=== PATIENT | female | born 2000 | race Caucasian/White ===

== ENCOUNTER 2019-01-01 20:00 | Emergency (ER) | payer SELFPAY ==
[~2019-01-01] VITALS: Ht 162.6 cm; Wt 54.4 kg
[2019-01-01] MEDS ORDERED: IV NORMAL SALINE 1000ML BAG 1,000 ML IV ONE (20:15)
[2019-01-01] MEDS ORDERED: ONDANSETRON PF 4 MG/2 ML VIAL. IVP ONE (20:15)
[2019-01-01] MEDS ORDERED: IPRATRPIUM/ALBUTEROL 0.5/2.5MG 3 ML NEBU. NEB ONE (20:30)
[2019-01-01] MEDS ORDERED: methylPREDNISolone SOD SUCC PF 125 MG/2 ML VIAL. IV ONE (20:30)
[2019-01-01 20:33] LABS: BASO # 0.1 x10^3/uL (0.0-0.2); BASO % 1 % (0-3); EOS # 0.1 x10^3/uL (0.0-0.7); EOS % 1 % (0-3); HEMATOCRIT 45.7 % (36.0-47.0); HEMOGLOBIN 15.3 g/dL (12.0-15.5); LYMPH # 1.3 x10^3/uL (1.0-4.8); LYMPH % 12 % (24-48); MEAN CORPUSCULAR HEMOGLOBIN 28 pg (25-35); MEAN CORPUSCULAR HGB CONC 34 g/dL (31-37); MEAN CORPUSCULAR VOLUME 84 fL (79-100); MONO # 0.5 x10^3/uL (0.0-1.1); MONO % 5 % (0-9); NEUT # 9.3 x10^3/uL (1.8-7.7); NEUT % 82 % (31-73); PLATELET COUNT 229 x10^3/uL (140-400); RED BLOOD COUNT 5.47 x10^6/uL (3.50-5.40); RED CELL DISTRIBUTION WIDTH 14.5 % (11.5-14.5); WHITE BLOOD COUNT 11.4 x10^3/uL (4.0-11.0)
--- NOTE | 2019-01-01 20:34 | PHYS DOC ---
Adult General Chief Complaint Chief Complaint: MULTIPLE COMPLAINTS HPI HPI Patient is a 18 year old female with history of asthma presents this shortness breath, cough and wheezing for the past 3 days, sore throat, nausea, vomiting and diarrhea past 5 days. No abdominal pain. Patient denies fever but reports sweats. Reports frequent albuterol inhaler use every 2 hours. Recent respiratory illness exposure. Patient's son was evaluated in this emergency department approximately one week ago for upper respiratory tract infection. [] Review of Systems Review of Systems Review symptoms as per history of present illness. All other review symptoms are negative. All other systems were reviewed and found to be within normal limits, except as documented in this note. Current Medications Current Medications Current Medications Medications (Trade) Dose Ordered Sig/Dylon Start Time Stop Time Status Last Admin Dose Admin Albuterol Sulfate (Ventolin Neb Soln) 10 mg 1X ONCE 01/01/19 21:30 01/01/19 21:31 DC 01/01/19 21:33 10 MG Albuterol/ Ipratropium (Duoneb) 3 ml 1X ONCE 01/01/19 20:30 01/01/19 20:45 DC 01/01/19 20:31 3 ML Ipratropium [place] (Atrovent) 0.5 mg 1X ONCE 01/01/19 21:30 01/01/19 21:31 DC 01/01/19 21:33 0.5 MG Methylprednisolone Sodium Succinate (SOLU-Medrol 125MG VIAL) 125 mg 1X ONCE 01/01/19 20:30 01/01/19 20:45 DC 01/01/19 20:46 125 MG Ondansetron HCl (Zofran) 4 mg 1X ONCE 01/01/19 20:15 01/01/19 20:45 DC 01/01/19 20:46 4 MG Sodium Chloride 1,000 ml @ 1,000 mls/hr 1X ONCE 01/01/19 20:15 01/01/19 21:14 DC 01/01/19 20:46 1,000 MLS/HR Allergies Allergies Allergies Coded Allergies Type Severity Reaction Last Updated Verified lamotrigine Allergy Intermediate Rash 01/01/19 Yes Physical Exam Physical Exam Constitutional: Well developed, well nourished, no acute distress, non-toxic appearance. [] HENT: Normocephalic, bilateral external ears normal, oropharynx moist, no oral exudates, nose, congestion. [] Eyes: PERRLA, EOMI, conjunctiva normal, no discharge. [] Neck: Normal range of motion, no tenderness. [] Cardiovascular:Heart rate regular rhythm, no murmur [] Lungs & Thorax: Respirations nonlabored, sounds mildly diminished, coarse wheezes respiratory and expiratory bilaterally. [] Abdomen: Bowel sounds normal, soft, no tenderness, no masses, no pulsatile masses. [] Skin: Warm, dry, no erythema, no rash. [] Back: No tenderness, no CVA tenderness. [] Extremities: No tenderness, no edema. [] Neurologic: Alert and oriented X 3, normal motor function, normal sensory function, no focal deficits noted. [] Psychologic: Affect normal, judgement normal, mood normal. [] Current Patient Data Vital Signs Vital Signs Date Time Temp Pulse Resp B/P (MAP) Pulse Ox O2 Delivery O2 Flow Rate FiO2 01/01/19 21:38 97 Room Air 01/01/19 20:10 98.8 117 18 132/71 (91) 94.0 98.8 Lab Values Laboratory Tests Test 01/01/19 20:10 01/01/19 20:21 01/01/19 20:25 Urine Collection Type Unknown Urine Color [place] Urine Clarity Clear Urine pH 6.0 Urine Specific [place] >=1.030 Urine Protein 30 mg/dL (NEG-TRACE) Urine Glucose (UA) Negative mg/dL (NEG) Urine Ketones (Stick) Trace mg/dL (NEG) Urine Blood Negative (NEG) Urine Nitrite Negative (NEG) Urine Bilirubin Small (NEG) Urine Urobilinogen Dipstick 1.0 mg/dL (0.2 mg/dL) Urine Leukocyte Esterase Negative (NEG) Urine RBC 1-2 /HPF (0-2) Urine WBC 1-4 /HPF (0-4) Urine Squamous Epithelial Cells Few /LPF Urine Bacteria Moderate /HPF (0-FEW) Urine Mucus Marked /LPF POC Urine HCG, Qualitative Hcg negative (Negative) White Blood Count 11.4 x10^3/uL (4.0-11.0) H Red Blood Count 5.47 x10^6/uL (3.50-5.40) H Hemoglobin 15.3 g/dL (12.0-15.5) Hematocrit 45.7 % (36.0-47.0) Mean Corpuscular Volume 84 fL (79-100) Mean Corpuscular Hemoglobin 28 pg (25-35) Mean Corpuscular Hemoglobin Concent 34 g/dL (31-37) Red Cell Distribution Width 14.5 % (11.5-14.5) Platelet Count 229 x10^3/uL (140-400) Neutrophils (%) (Auto) 82 % (31-73) H Lymphocytes (%) (Auto) 12 % (24-48) L Monocytes (%) (Auto) 5 % (0-9) Eosinophils (%) (Auto) 1 % (0-3) Basophils (%) (Auto) 1 % (0-3) Neutrophils # (Auto) 9.3 x10^3/uL (1.8-7.7) H Lymphocytes # (Auto) 1.3 x10^3/uL (1.0-4.8) Monocytes # (Auto) 0.5 x10^3/uL (0.0-1.1) Eosinophils # (Auto) 0.1 x10^3/uL (0.0-0.7) Basophils # (Auto) 0.1 x10^3/uL (0.0-0.2) Sodium Level 142 mmol/L (136-145) Potassium Level 3.5 mmol/L (3.5-5.1) Chloride Level 104 mmol/L (98-107) Carbon Dioxide Level 25 mmol/L (21-32) Anion Gap 13 (6-14) Blood Urea Nitrogen 9 mg/dL (7-20) Creatinine 0.8 mg/dL (0.6-1.0) Estimated GFR (Cockcroft-Gault) 91.4 BUN/Creatinine Ratio 11 (6-20) Glucose Level 99 mg/dL (70-99) Calcium Level 9.6 mg/dL (8.5-10.1) Total Bilirubin 1.9 mg/dL (0.2-1.0) H Aspartate Amino Transferase (AST) 15 U/L (15-37) Alanine Aminotransferase (ALT) 11 U/L (14-59) L Alkaline Phosphatase 96 U/L (46-116) Total Protein 8.7 g/dL (6.4-8.2) H Albumin 4.3 g/dL (3.4-5.0) Albumin/Globulin Ratio 1.0 (1.0-1.7) Influenza Type A Antigen Negative (NEGATIVE) Influenza Type B Antigen Negative (NEGATIVE) Laboratory Tests 01/01/19 20:25 Laboratory Tests 01/01/19 20:25 EKG EKG [] Radiology/Procedures Radiology/Procedures [Chest x-ray: No acute cardiopulmonary disease per radiology report.] Course & Med Decision Making Course & Med Decision Making Pertinent Labs and Imaging studies reviewed. (See chart for details) [Patient with a respiratory tract infection with asthma exacerbation. Steroids, repeat nebs given with symptomatic improvement. Recommend continued supportive care with PCP follow-up. Return precautions reviewed here patient verbalizes understanding agreement discharge instructions prior to departure] Dragon Disclaimer Dragon Disclaimer This electronic medical record was generated, in whole or in part, using a voice recognition dictation system. Departure Departure Impression: Primary Impression: Respiratory tract infection Additional Impression: Asthma exacerbation Disposition: HOME, SELF-CARE Condition: STABLE Referrals: NO PCP (PCP) Patient Instructions: Asthma, Acute Bronchospasm, Upper Respiratory Infection, Adult, [id number] Additional Instructions: Please fill prescriptions after leaving the emergency department and take as directed. Use [employer] for discount prices. Follow-up with your PCP in 3-5 days for reevaluation. In the meantime, return to the ED if new or worsening symptoms. Scripts Cephalexin (KEFLEX) 500 Mg Capsule 1 CAP PO TID for 7 Days, #21 CAP 0 Refills Prov: GAVIN MELO DO 01/01/19 Albuterol Sulfate (PROAIR HFA INHALER) 8.5 Gm Hfa.aer.ad 2 PUFF IH PRN Q4-6HRS PRN for wheezing for 21 Days, #1 INHALER 0 Refills Prov: GAVIN MELO DO 01/01/19 Prednisone (PREDNISONE) 50 Mg Tablet 1 TAB PO DAILY, #5 TAB Prov: GAVIN MELO DO 01/01/19 Problem Qualifiers GAVIN MELO DO Jan 01, 2019 20:34
[2019-01-01 20:40] LABS: CALCIUM 9.6 mg/dL (8.5-10.1); CREATININE 0.8 mg/dL (0.6-1.0); GFR 91.4; POTASSIUM 3.5 mmol/L (3.5-5.1)
[2019-01-01 20:46] LABS: ALBUMIN 4.3 g/dL (3.4-5.0); TOTAL BILIRUBIN 1.9 mg/dL (0.2-1.0); TOTAL PROTEIN 8.7 g/dL (6.4-8.2)
[2019-01-01 20:50] LABS: INFLUENZA A PATIENT NEGATIVE (NEGATIVE); INFLUENZA B PATIENT NEGATIVE (NEGATIVE)
[2019-01-01 20:50] LABS: BILIRUBIN,URINE SMALL (NEG); CLARITY,URINE CLEAR; COLOR,URINE AMBER; NITRITE,URINE NEGATIVE (NEG); PROTEIN,URINE 30 mg/dL (NEG-TRACE)
[2019-01-01 20:54] LABS: BACTERIA,URINE MODERATE /HPF (0-FEW)
[2019-01-01 20:55] LABS: SQUAMOUS EPITHELIAL CELL,UR FEW /LPF
[2019-01-01] MEDS ORDERED: IPRATROPIUM BROMIDE 0.5 MG/2.5 ML NEBU. NEB ONE (21:30)
[2019-01-01] MEDS ORDERED: ALBUTEROL SULFATE 2.5 MG/3 ML NEBU. CONT NEB ONE (21:30)
--- NOTE | 2019-01-01 22:07 | RAD ---
Exam: Chest 2 views INDICATION: Shortness of breath TECHNIQUE: Frontal and lateral views the chest Comparisons: None FINDINGS: The cardiomediastinal silhouette and pulmonary vessels are within normal limits. The lung and pleural spaces are clear. IMPRESSION: No acute cardiopulmonary process. Electronically signed by: Brayden Lewis MD (01/01/2019 10:04 PM) [id number]
[2019-01-01] MEDS ORDERED: CEPH-264 PO (22:38)
[2019-01-01] MEDS ORDERED: ALBU2.5V8 IH (22:38)
[2019-01-01] MEDS ORDERED: PRED50TA PO (22:38)
[2019-01-01 22:45] VITALS: BP 122/60
== END 2019-01-01 22:45 | disposition home or self-care (01) ==
LOC: ER 20:00
DX: J45.901 Unspecified asthma with (acute) exacerbation (principal); R11.2 Nausea with vomiting, unspecified; R19.7 Diarrhea, unspecified; Z88.8 Allergy status to other drugs, medicaments and biological substances
CPT/HCPCS: 36415; 71046; 80053; 81001; 81025; 85025; 87086; 87804; 94640; 94644; 96361; 96374; 96375; 99285; J2405; J2930; J7030; J7613; J7620; J7644

== ENCOUNTER 2019-04-06 20:53 | Emergency (ER) | payer SELFPAY ==
[~2019-04-06] VITALS: Ht 156.2 cm; Wt 50.6 kg
[~2019-04-06 20:53] MED LIST: ALBU2.5V8 IH; CEPH-264 PO; PRED50TA PO
[2019-04-06 22:16] LABS: BASO # 0.1 x10^3/uL (0.0-0.2); BASO % 1 % (0-3); EOS # 0.3 x10^3/uL (0.0-0.7); EOS % 3 % (0-3); HEMATOCRIT 42.9 % (36.0-47.0); HEMOGLOBIN 14.6 g/dL (12.0-15.5); LYMPH # 2.6 x10^3/uL (1.0-4.8); LYMPH % 23 % (24-48); MEAN CORPUSCULAR HEMOGLOBIN 28 pg (25-35); MEAN CORPUSCULAR HGB CONC 34 g/dL (31-37); MEAN CORPUSCULAR VOLUME 83 fL (79-100); MONO # 0.4 x10^3/uL (0.0-1.1); MONO % 4 % (0-9); NEUT # 7.9 x10^3/uL (1.8-7.7); NEUT % 70 % (31-73); PLATELET COUNT 265 x10^3/uL (140-400); RED BLOOD COUNT 5.16 x10^6/uL (3.50-5.40); RED CELL DISTRIBUTION WIDTH 16.1 % (11.5-14.5); WHITE BLOOD COUNT 11.3 x10^3/uL (4.0-11.0)
[2019-04-06 22:18] LABS: BILIRUBIN,URINE NEGATIVE (NEG); CLARITY,URINE CLEAR; COLOR,URINE YELLOW; NITRITE,URINE NEGATIVE (NEG); PROTEIN,URINE NEGATIVE (NEG-TRACE)
[2019-04-06 22:28] LABS: BACTERIA,URINE FEW /HPF (0-FEW); RBC,URINE 0 /HPF (0-2); SQUAMOUS EPITHELIAL CELL,UR MOD /LPF
[2019-04-06 22:33] LABS: CREATININE 0.6 mg/dL (0.6-1.0); GFR 127.5; POTASSIUM 3.5 mmol/L (3.5-5.1)
[2019-04-06 22:42] LABS: ALBUMIN 3.6 g/dL (3.4-5.0); TOTAL BILIRUBIN 1.1 mg/dL (0.2-1.0); TOTAL PROTEIN 7.2 g/dL (6.4-8.2)
--- NOTE | 2019-04-06 23:15 | RAD ---
INDICATION: Pelvic pain and cramping COMPARISON: None. TECHNIQUE: Grayscale and color ultrasound images uterus and adnexa. Transabdominal and transvaginal images obtained. Transvaginal images were needed to better visualize structures that were limited on transabdominal imaging. FINDINGS: Uterus: 79 x 60 x 55 mm. Cystic structure within endometrium measuring 8 mm. Cervix measures 34 mm. Right Ovary: 36 x 30 x 22 mm. Left Ovary: 35 x 17 x 16 mm. Vascular flow identified to bilateral ovaries. Hypoechoic lesion right ovary measuring 19 mm. Could be from cyst with debris IMPRESSION: * Intrauterine gestational sac is seen with a yolk sac but no pole at this time. There may be helpful to obtain follow-up to ensure that there is appropriate development of a pole. Electronically signed by: Mauricio Bae MD (04/06/2019 11:12 PM) [id number]
--- NOTE | 2019-04-07 00:04 | PHYS DOC ---
Past Medical History Past Medical History: Anemia, Asthma, Other Additional Past Medical Histor: PEPTIC ULCER (ZAIN KELSEY APRN) Past Surgical History: Other Additional Past Surgical Histo: ENDOSCOPY X2 (ZAIN KELSEY APRN) Smoking Status: Current Every Day Smoker Additional Information: 1/2PPD Alcohol Use: None Drug Use: Marijuana (ZAIN KELSEY APRN) Attending Signature I have participated in the care of this patient and I have reviewed and agree with all pertinent clinical information above including history, exam, and recommendations. (ROSITA BUTLER MD) Adult General Chief Complaint Chief Complaint: ABDOMINAL PAIN IN HPI HPI Patient is a 18 year old female who presents to the emergency department with complaints of lower abdominal and lower back pain that began today. She states she is 3, para 1, AB 1. Her last menstrual cycle was on February 24, 2019 and her estimated due date is December 01, 2019. Patient states that she had her confirmed at the [facility]. She denies any irregular vaginal discharge, vaginal bleeding, or vaginal odor. She denies any dysuria, hematuria, or foul-smelling urine. She does report increased urinary frequency with this . She rates her pain a 6/10 on the pain scale, she denies any alleviating factors. (ZAIN KELSEY APRN) Review of Systems Review of Systems All other systems were reviewed and found to be within normal limits, except as documented in this note. (ZAIN KELSEY APRN) Allergies Allergies Allergies Coded Allergies Type Severity Reaction Last Updated Verified lamotrigine Allergy Intermediate Rash 01/01/19 Yes (ROSITA BUTLER MD) Physical Exam Physical Exam Constitutional: Well developed, well nourished, no acute distress, non-toxic appearance. [] HENT: Normocephalic, atraumatic, bilateral external ears normal, oropharynx moist, no oral exudates, nose normal. [] Eyes: PERRLA, EOMI, conjunctiva normal, no discharge. [] Neck: Normal range of motion, no stridor. [] Cardiovascular:Heart rate regular rhythm Lungs & Thorax: Bilateral breath sounds clear to auscultation, Respirations even and unlabored, no retractions, no respiratory distress [] Abdomen: Bowel sounds normal, soft, suprapubic tenderness, no rebound tenderness, no guarding, no masses, no pulsatile masses. [] Skin: Warm, dry, no erythema, no rash. [] Back: No CVA tenderness. [] Extremities: No cyanosis, ROM intact, no edema. [] Neurologic: Alert and oriented X 3, no focal deficits noted. [] Psychologic: Affect normal, judgement normal, mood normal. [] (ZAIN KELSEY APRN) Current Patient Data Vital Signs Vital Signs Date Time Temp Pulse Resp B/P (MAP) Pulse Ox O2 Delivery O2 Flow Rate FiO2 04/07/19 00:10 70 16 114/66 (82) 98 Room Air 04/06/19 21:53 98.3 98.3 (ROSITA BUTLER MD) Lab Values Laboratory Tests Test 04/06/19 21:50 04/06/19 22:03 04/06/19 22:06 Urine Collection Type Unknown Urine Color Yellow Urine Clarity Clear Urine pH 7.0 Urine Specific [place] 1.010 Urine Protein Negative mg/dL (NEG-TRACE) Urine Glucose (UA) Negative mg/dL (NEG) Urine Ketones (Stick) Negative mg/dL (NEG) Urine Blood Negative (NEG) Urine Nitrite Negative (NEG) Urine Bilirubin Negative (NEG) Urine Urobilinogen Dipstick 1.0 mg/dL (0.2 mg/dL) Urine Leukocyte Esterase Small (NEG) Urine RBC 0 /HPF (0-2) Urine WBC 5-10 /HPF (0-4) Urine Squamous Epithelial Cells Mod /LPF Urine Bacteria Few /HPF (0-FEW) White Blood Count 11.3 x10^3/uL (4.0-11.0) H Red Blood Count 5.16 x10^6/uL (3.50-5.40) Hemoglobin 14.6 g/dL (12.0-15.5) Hematocrit 42.9 % (36.0-47.0) Mean Corpuscular Volume 83 fL (79-100) Mean Corpuscular Hemoglobin 28 pg (25-35) Mean Corpuscular Hemoglobin Concent 34 g/dL (31-37) Red Cell Distribution Width 16.1 % (11.5-14.5) H Platelet Count 265 x10^3/uL (140-400) Neutrophils (%) (Auto) 70 % (31-73) Lymphocytes (%) (Auto) 23 % (24-48) L Monocytes (%) (Auto) 4 % (0-9) Eosinophils (%) (Auto) 3 % (0-3) Basophils (%) (Auto) 1 % (0-3) Neutrophils # (Auto) 7.9 x10^3/uL (1.8-7.7) H Lymphocytes # (Auto) 2.6 x10^3/uL (1.0-4.8) Monocytes # (Auto) 0.4 x10^3/uL (0.0-1.1) Eosinophils # (Auto) 0.3 x10^3/uL (0.0-0.7) Basophils # (Auto) 0.1 x10^3/uL (0.0-0.2) Maternal Serum HCG Beta Subunit 3833 mIU/mL (0-5) H Sodium Level 137 mmol/L (136-145) Potassium Level 3.5 mmol/L (3.5-5.1) Chloride Level 103 mmol/L (98-107) Carbon Dioxide Level 23 mmol/L (21-32) Anion Gap 11 (6-14) Blood Urea Nitrogen 7 mg/dL (7-20) Creatinine 0.6 mg/dL (0.6-1.0) Estimated GFR (Cockcroft-Gault) 127.5 BUN/Creatinine Ratio 12 (6-20) Glucose Level 149 mg/dL (70-99) H Calcium Level 9.0 mg/dL (8.5-10.1) Total Bilirubin 1.1 mg/dL (0.2-1.0) H Aspartate Amino Transferase (AST) 12 U/L (15-37) L Alanine Aminotransferase (ALT) 16 U/L (14-59) Alkaline Phosphatase 85 U/L (46-116) Total Protein 7.2 g/dL (6.4-8.2) Albumin 3.6 g/dL (3.4-5.0) Albumin/Globulin Ratio 1.0 (1.0-1.7) POC Urine HCG, Qualitative Hcg positive (Negative) Laboratory Tests 04/06/19 22:03 Laboratory Tests 04/06/19 22:03 (ROSITA BUTLER MD) EKG EKG [] (ZAIN EKLSEY APRN) Radiology/Procedures Radiology/Procedures PROCEDURE: OB <14 WKS W/TV INDICATION: Pelvic pain and cramping COMPARISON: None. TECHNIQUE: Grayscale and color ultrasound images uterus and adnexa. Transabdominal and transvaginal images obtained. Transvaginal images were needed to better visualize structures that were limited on transabdominal imaging. FINDINGS: Uterus: 79 x 60 x 55 mm. Cystic structure within endometrium measuring 8 mm. Cervix measures 34 mm. Right Ovary: 36 x 30 x 22 mm. Left Ovary: 35 x 17 x 16 mm. Vascular flow identified to bilateral ovaries. Hypoechoic lesion right ovary measuring 19 mm. Could be from cyst with debris IMPRESSION: * Intrauterine gestational sac is seen with a yolk sac but no pole at this time. There may be helpful to obtain follow-up to ensure that there is appropriate development of a pole. [] (ZAIN KELSEY APRN) Course & Med Decision Making Course & Med Decision Making Pertinent Labs and Imaging studies reviewed. (See chart for details) [] (ZAIN KELSEY APRN) Dragon Disclaimer Dragon Disclaimer This electronic medical record was generated, in whole or in part, using a voice recognition dictation system. (ZAIN KELSEY APRN) Departure Departure Impression: Primary Impression: Abdominal pain during in first trimester Disposition: 01 HOME, SELF-CARE Condition: STABLE Referrals: BINDU ARAMBULA Jr, MD Patient Instructions: ABCs of , Abdominal Pain During , [id number] Additional Instructions: Your HCG level today was 3833. You ultrasound revealed an intrauterine gestational yolk sab but no pole, this may be normal for the stage of you are in. I recommend that you follow up with your OBGyn or Dr. Arambula next week for repeat HCG level and ultrasound. Pelvic rest until follow up, call in the morning to schedule a follow up appointment. Return to the ER if symptoms worsen. ZAIN KELSEY APRN Apr 07, 2019 00:04 ROSITA BUTLER MD Apr 07, 2019 05:50
[2019-04-07 00:10] VITALS: BP 114/66
== END 2019-04-07 00:20 | disposition home or self-care (01) ==
LOC: ER 20:53
DX: O26.891 Other specified pregnancy related conditions, first trimester (principal); R10.30 Lower abdominal pain, unspecified; O99.331 Smoking (tobacco) complicating pregnancy, first trimester; O99.511 Diseases of the respiratory system complicating pregnancy, first trimester; M54.5 Low back pain; R35.0 Frequency of micturition; F12.90 Cannabis use, unspecified, uncomplicated; Z98.890 Other specified postprocedural states; Z88.8 Allergy status to other drugs, medicaments and biological substances
CPT/HCPCS: 36415; 76801; 76817; 80053; 81001; 81025; 84702; 85025; 87086; 99285